=== PATIENT | female | born 1995 | race Caucasian/White ===

== ENCOUNTER 2021-02-28 21:03 | Emergency (ER) | payer SELFPAY ==
[2021-02-28 21:16] VITALS: BP 118/72; PULSE 78; TEMP 98.7; BMI 26.4
[2021-02-28 22:32] LABS: ALBUMIN 4.4 g/dl (3.4-5.0); BILIRUBIN,TOTAL 0.5 mg/dl (0.2-1); CALCIUM 9.8 mg/dl (8.5-10); CREATININE 0.8 mg/dl (0.55-1.3); TOT PROT 7.4 g/dl (6.4-8.2)
[2021-02-28 23:22] LABS: HEPATITIS B SURFACE AG MATERN NON-REACTIVE (NONREACTIVE)
[2021-02-28 23:51] LABS: HIV INTERPRETATION NEGATIVE (NEGATIVE)
== END 2021-02-28 21:57 | disposition home or self-care (01) ==
LOC: FER 21:03
DX: L25.9 Unspecified contact dermatitis, unspecified cause (principal); W46.1XXA Contact with contaminated hypodermic needle, initial encounter; Y92.9 Unspecified place or not applicable
CPT/HCPCS: 36415; 80053; 86705; 86707; 87340; 87389; 87517; 99284-25